=== PATIENT | female | born 1950 | race Caucasian/White ===

== ENCOUNTER 2021-01-22 14:55 | Emergency (ER) | payer MEDICARE, OTHER ==
[2021-01-22 15:12] VITALS: TEMP 98
[2021-01-22] MEDS ORDERED: AMOXIC-POT CLAV 875MG STARTER PACK 2 TAB BTL PO STA (16:08)
[2021-01-22] MEDS ORDERED: DIPH,PERTUS(ACELL)TETVAC-LF 0.5 ML VIAL IM ONE (16:09)
[2021-01-22] MEDS ORDERED: BACITRACIN OINT 1 EACH PACKET TOPICAL STA (16:13)
--- NOTE | 2021-01-22 16:14 | ED ---
General Adult HPI - General Chief complaint: Skin/Abscess/Foreign Body Stated complaint: R arm injury Time Seen by Provider: 01/22/21 15:51 Source: patient, RN notes reviewed Mode of arrival: ambulatory Limitations: no limitations - History of Present Illness Initial comments: 71-year-old female presents to the emergency room for chief complaint of right arm pain. Patient reports her grand daughters dog jumped on her right forearm and caused a skin tear area yesterday. Patient reports she started on Keflex today but it is a little swollen so she came into the ear. Patient denies fevers. Denies any other symptoms.Patient has no other complaints at this time including shortness of breath, chest pain, abdominal pain, nausea or vomiting, headache, or visual changes. - Related Data Previous Rx's Medication Instructions Recorded Amoxicillin/Potassium Clav 1 tab PO Q12HR #20 tab 01/22/21 [Augmentin 875-125 Tablet] Allergies Allergy/AdvReac Type Severity Reaction Status Date / Time morphine Allergy Unknown Verified 01/22/21 15:07 Nitrate Analogues Allergy Unknown Verified 01/22/21 15:07 nitroglycerin Allergy Unknown Verified 01/22/21 15:07 Review of Systems ROS Statement: Those systems with pertinent positive or pertinent negative responses have been documented in the HPI. ROS Other: All systems not noted in ROS Statement are negative. Past Medical History Past Medical History: No Reported History History of Any Multi-Drug Resistant Organisms: None Reported Past Surgical History: Pacemaker Past Psychological History: No Psychological Hx Reported Smoking Status: Former smoker Past Alcohol Use History: None Reported Past Drug Use History: None Reported General Exam Limitations: no limitations General appearance: alert, in no apparent distress Head exam: Present: atraumatic, normocephalic, normal inspection Eye exam: Present: normal appearance, PERRL, EOMI. Absent: scleral icterus, conjunctival injection, periorbital swelling ENT exam: Present: normal exam Neck exam: Present: normal inspection, full ROM. Absent: tenderness, meningismus, lymphadenopathy Respiratory exam: Present: normal lung sounds bilaterally. Absent: respiratory distress, wheezes, rales, rhonchi, stridor Cardiovascular Exam: Present: regular rate, normal rhythm, normal heart sounds. Absent: systolic murmur, diastolic murmur, rubs, gallop, clicks Extremities exam: Present: full ROM (Full range motion of the right hand and arm.), normal capillary refill (Capillary refill less than 2 seconds, radial pulse 2+.), other (3 small skin tears noted to right forearm, minimal erythema surrounding the area. No purulent drainage.) Course Vital Signs 01/22/21 01/22/21 15:08 17:02 Temperature 98.0 F Pulse Rate 77 72 Respiratory 18 16 Rate Blood Pressure 98/61 111/62 O2 Sat by Pulse 95 94 L Oximetry Medical Decision Making - Medical Decision Making Vitals are stable. Patient well-appearing. She does have 3 small skin tears and some surrounding erythema. We will switch her from Keflex to Augmentin. She will follow up with her doctor. If symptoms worsen she will return here. Disposition Clinical Impression: Skin tear Disposition: HOME SELF-CARE Condition: Good Instructions (If sedation given, give patient instructions): Skin Tear (ED) Additional Instructions: Please discontinue Keflex and start Augmentin. Take antibiotic as directed. Keep area clean. Apply and a medic ointment. Follow-up with her doctor. If symptoms are worsening or your arm is becoming more red or swollen return to the emergency room. Prescriptions: Amoxicillin/Potassium Clav [Augmentin 875-125 Tablet] 1 tab PO Q12HR #20 tab Is patient prescribed a controlled substance at d/c from ED?: No Referrals: Nonstaff,Physician [Primary Care Provider] - 1-2 days Time of Disposition: 16:13
[2021-01-22 17:03] VITALS: BP 111/62; PULSE 72; RESP 16
== END 2021-01-22 16:55 | disposition home or self-care (01) ==
LOC: EC 14:55
DX: S51.811A Laceration without foreign body of right forearm, initial encounter (principal); Z87.891 Personal history of nicotine dependence; W54.8XXA Other contact with dog, initial encounter
CPT/HCPCS: 90471; 90715; 99283